=== PATIENT | male | born 1945 | race Caucasian/White ===

== ENCOUNTER → 2016-11-28 | Outpatient (CLI) | payer OTHER ==
[~2016-11-28] MED LIST: CELECOXIB200 MG PO; CRESTOR10 MG PO; DOCUSATE SODIU100 MG PO; ENDOCET 5-3251 EACH PO; GARLIC OIL1 EACH PO; IRON325 MG PO; LISINOPRIL10 MG PO; LOVENOX40 MG/0.4 SC; MEDROL DOSEPAK4 MG PO; METHYLPREDNISOLO4 M1 PO; NORCO 5/3251 TABLET PO; OXYCONTIN10 MG PO; TIZANIDINE HCL4 M1 PO; VALIUM5 MG PO
== END | disposition home or self-care (01) ==
DX: M17.11 Unilateral primary osteoarthritis, right knee (principal); R26.2 Difficulty in walking, not elsewhere classified; M25.561 Pain in right knee; M25.661 Stiffness of right knee, not elsewhere classified; M62.81 Muscle weakness (generalized)
CPT/HCPCS: 97110 GP; 97161 GP; G8978 GP; G8979 GP; G8980 GP

== ENCOUNTER 2016-12-05 06:29 | Inpatient (IN) | payer OTHER ==
[~2016-12-05] VITALS: Ht 179.1 cm; Wt 102.4 kg
[~2016-12-05 06:29] MED LIST changes: -CELECOXIB200 MG PO; -DOCUSATE SODIU100 MG PO; -ENDOCET 5-3251 EACH PO; -LOVENOX40 MG/0.4 SC; -OXYCONTIN10 MG PO
[2016-12-05 07:47] VITALS: BP 133/77
[2016-12-05 12:35] LABS: HEMATOCRIT 37.5 % (38.0-50.0); MCH 30.2 PG (29.0-34.0); MCHC 32.8 G/DL (30.0-36.0); MCV 92.1 FL (86-99); MEAN PLAT.VOLUME 10.3 uM^3 (9.0-12.4); PLATELET COUNT 198 K/uL (156-360); RBC DIS.WIDTH-CV 13.3 % (11.8-14.6); RBC DIS.WIDTH-SD 45.4 % (39-53); RED BLOOD COUNT 4.07 M/uL (4.00-5.50); WHITE BLOOD COUNT 5.2 K/uL (4.1-10.2)
[2016-12-05 13:12] VITALS: BP 128/73
[2016-12-05 16:00] VITALS: BP 139/77
[2016-12-05 20:00] VITALS: BP 165/87
[2016-12-05 21:00] VITALS: BP 145/67
[2016-12-05 23:47] VITALS: BP 151/71
[2016-12-06 03:40] VITALS: BP 134/63
[2016-12-06 06:49] LABS: HEMATOCRIT 37.8 % (38.0-50.0)
[2016-12-06 07:09] LABS: ANION GAP 9 MEQ/L (2-14); CHLORIDE 103 MEQ/L (99-109); GFR ESTIMATE (CALCULATED) > 59 mL/min/; GLUCOSE 189 mg/dL (70-99); POTASSIUM 4.2 MEQ/L (3.7-5.4); SAMPLE HEMOLYSIS CHECK 0; SAMPLE ICTERIC CHECK 0; SAMPLE LIPEMIA CHECK 0; SODIUM 137 MEQ/L (136-147); UREA NITROGEN (BUN) 10 mg/dL (9-23)
[2016-12-06 07:59] VITALS: BP 130/70
[2016-12-06 11:36] VITALS: BP 132/69
[2016-12-06 16:09] VITALS: BP 124/73
[2016-12-06 20:00] VITALS: BP 137/61
[2016-12-07 00:30] VITALS: BP 138/65
[2016-12-07 04:30] VITALS: BP 137/71
[2016-12-07 05:49] LABS: HEMATOCRIT 36.1 % (38.0-50.0); MCV 92.1 FL (86-99)
[2016-12-07 06:46] LABS: ANION GAP 6 MEQ/L (2-14); CHLORIDE 103 MEQ/L (99-109); GFR ESTIMATE (CALCULATED) > 59 mL/min/; GLUCOSE 137 mg/dL (70-99); POTASSIUM 4.3 MEQ/L (3.7-5.4); SAMPLE HEMOLYSIS CHECK 0; SAMPLE ICTERIC CHECK 0; SAMPLE LIPEMIA CHECK 0; SODIUM 138 MEQ/L (136-147); UREA NITROGEN (BUN) 10 mg/dL (9-23)
[2016-12-07 07:50] VITALS: BP 132/78
[2016-12-07] MEDS ORDERED: DOCUSATE SODIU100 MG PO (08:26)
[2016-12-07] MEDS ORDERED: OXYCONTIN10 MG PO (08:26)
[2016-12-07] MEDS ORDERED: CELECOXIB200 MG PO (08:26)
[2016-12-07] MEDS ORDERED: ENDOCET 5-3251 EACH PO (08:26)
[2016-12-07] MEDS ORDERED: LOVENOX40 MG/0.4 SC (08:31)
[2016-12-07 12:33] VITALS: BP 119/67
== END 2016-12-07 15:34 | DRG 470 ==
LOC: 2SOUTH → 3WEST 12:47 → 2SOUTH 14:42 → 3WEST 12-07 15:34
PROVIDERS: Orthopaedic Surgery; Physician Assistant
PROC: 0SRC0J9 Replacement of Right Knee Joint with Synthetic Substitute, Cemented, Open Approach (ICD-10-PCS; principal; 2016-12-05)
DX: M17.11 Unilateral primary osteoarthritis, right knee (principal); I10 Essential (primary) hypertension; M21.161 Varus deformity, not elsewhere classified, right knee; E78.00 Pure hypercholesterolemia, unspecified; M19.90 Unspecified osteoarthritis, unspecified site; M54.16 Radiculopathy, lumbar region; R60.0 Localized edema; M54.2 Cervicalgia; R73.9 Hyperglycemia, unspecified
CPT/HCPCS: 73560; 80048; 85014; 85018; 85027; 97530 GP; C1713; J0131; J0690; J1170; J1650; J2250; J2405; J3010; J7050